=== PATIENT | female | born 2000 | race Caucasian/White ===

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

== ENCOUNTER 2020-04-02 08:22 | Emergency (ER) | payer BC, OTHER ==
[~2020-04-02] VITALS: Ht 177.8 cm; Wt 94.1 kg
[2020-04-02] MEDS ORDERED: KEFLEX500 MG PO (08:44)
== END 2020-04-02 09:01 | disposition home or self-care (01) ==
LOC: ED 08:22
DX: S61.032A Puncture wound without foreign body of left thumb without damage to nail, initial encounter (principal); W22.8XXA Striking against or struck by other objects, initial encounter; Y99.0 Civilian activity done for income or pay
CPT/HCPCS: 73140; 99283-25

== ENCOUNTER 2020-05-16 08:56 | Emergency (ER) | payer BC, OTHER ==
[~2020-05-16 08:56] MED LIST changes: +KEFLEX500 MG PO
== END 2020-05-16 12:00 | disposition home or self-care (01) ==
LOC: ED 08:56
DX: R10.11 Right upper quadrant pain (principal); J45.909 Unspecified asthma, uncomplicated
CPT/HCPCS: 76705; 80053; 83690; 84703; 85025; 99284-25

== ENCOUNTER 2020-06-06 11:31 | Emergency (ER) | payer BC, OTHER ==
[~2020-06-06] VITALS: Ht 177.8 cm; Wt 93.9 kg
--- OUTSIDE RECORDS SUMMARY | 2020-06-06 11:34 | XMS ---
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 - 2 Visits in 30 Days CARE PROVIDERS PAVILION, Durable Medical Equipment \T\ Medical Supplies [facility] PHONE: [phone] Choco has no Care Guidelines for this patient. [place] VISIT COUNT (12 MO.) 3 [facility] TOTAL 3 NOTE: Visits indicate total known visits. ED/UCC VISIT TRACKING (12 MO.) 06/06/2020 11:32 [facility] [place] TYPE: Emergency COMPLAINT: - LOWER ABDOMINAL PAIN 05/16/2020 08:56 [facility] [place] TYPE: Emergency COMPLAINT: - ABD PAIN DIAGNOSES: - Right upper quadrant pain - Unspecified asthma, uncomplicated 04/02/2020 08:23 [facility] [place] TYPE: Emergency COMPLAINT: - LEFT THUMB INJURY DIAGNOSES: - Striking against or struck by other objects, initial encounter - Puncture wound without foreign body of left thumb without damage to nail, initial encounter - Civilian activity done for income or pay INPATIENT VISIT TRACKING (12 MO.) No inpatient visits to display in this time frame [email or web address]
[2020-06-06] MEDS ORDERED: HYDROCODON-ACE1 EA10 PO (14:11)
== END 2020-06-06 14:27 | disposition home or self-care (01) ==
LOC: ED 11:31
DX: N83.201 Unspecified ovarian cyst, right side (principal)
CPT/HCPCS: 36415; 76830; 76856; 81001; 84703; 85025; 96374; 99284-25; J1885

== ENCOUNTER 2020-09-03 12:40 | Emergency (ER) | payer OTHER ==
[~2020-09-03] VITALS: Ht 177.8 cm; Wt 79.4 kg
[~2020-09-03 12:40] MED LIST changes: +HYDROCODON-ACE1 EA10 PO
--- OUTSIDE RECORDS SUMMARY | 2020-09-03 12:46 | XMS ---
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 Care History Medical/Surgical 06/07/2020 [facility] - Patient is currently established with [facility]. If patient is seen in the ED during business hours. Please contact CHWs at [facility]. Care Recommendation: If this patient has had 5 or more Emergency Department visits in the last 12 months.\T\nbsp; Patient will require education on the scope and purpose of the ED as an acute care provider not a Primary Care Provider and should not be utilized for chronic conditions.\T\nbsp; These are guidelines and the provider should exercise clinical judgment when providing care. E.D. VISIT COUNT (12 MO.) [address] [facility] TOTAL 4 NOTE: Visits indicate total known visits. ED/UCC VISIT TRACKING (12 MO.) 09/03/2020 12:41 [facility] [place] TYPE: Emergency COMPLAINT: - N/V, DIZZINESS 06/06/2020 11:32 [facility] [place] TYPE: Emergency COMPLAINT: - LOWER ABDOMINAL PAIN DIAGNOSES: - Unspecified ovarian cyst, right side - Pelvic and perineal pain 05/16/2020 08:56 [facility] [place] TYPE: Emergency [...] visits to display in this time frame [email or web address]
[2020-09-03] MEDS ORDERED: ONDANSETRON ODT4 MG PO (14:16)
== END 2020-09-03 14:26 | disposition home or self-care (01) ==
LOC: ED 12:40
DX: R11.2 Nausea with vomiting, unspecified (principal); J45.909 Unspecified asthma, uncomplicated
CPT/HCPCS: 81001; 84703; 99284

== ENCOUNTER 2020-09-10 07:27 | Emergency (ER) | payer OTHER ==
[~2020-09-10] VITALS: Ht 177.8 cm; Wt 72.6 kg
[~2020-09-10 07:27] MED LIST changes: +ONDANSETRON ODT4 MG PO
--- OUTSIDE RECORDS SUMMARY | 2020-09-10 07:30 | XMS ---
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 Care History Medical/Surgical 06/07/2020 [facility] - Patient is currently established with [facility]. If patient is seen in the ED during business hours. Please contact CHWs at [facility]. Care Recommendation: If this patient has had [...] providing care. E.D. VISIT COUNT (12 MO.) 5 [facility] TOTAL 5 NOTE: Visits indicate total known visits. ED/UCC VISIT TRACKING (12 MO.) 09/10/2020 07:28 [facility] [place] TYPE: Emergency COMPLAINT: - NAUSEA, VOMITING (CT SCHEDULED 0830) 09/03/2020 12:41 [facility] [place] [facility] [place] TYPE: Emergency COMPLAINT: - N/V, DIZZINESS DIAGNOSES: - Unspecified asthma, uncomplicated - Nausea with vomiting, unspecified 06/06/2020 11:32 [facility] [place] [facility] [place] TYPE: Emergency COMPLAINT: - LOWER ABDOMINAL PAIN DIAGNOSES: - Unspecified ovarian cyst, right side - Pelvic and perineal pain 05/16/2020 08:56 [facility] [place] [facility] [place] TYPE: Emergency COMPLAINT: - ABD PAIN DIAGNOSES: - Right upper quadrant pain - Unspecified asthma, uncomplicated 04/02/2020 08:23 [facility] [place] [facility] [place] TYPE: Emergency COMPLAINT: - LEFT THUMB INJURY DIAGNOSES: - Striking against or struck by other objects, initial encounter - Puncture wound without foreign body of left thumb without damage to nail, initial encounter - Civilian activity done for income or pay INPATIENT VISIT TRACKING (12 MO.) No inpatient visits to display in this time frame [email or web address]
== END 2020-09-10 12:00 | disposition home or self-care (01) ==
LOC: ED 07:27
DX: R10.9 Unspecified abdominal pain (principal); R11.2 Nausea with vomiting, unspecified; K76.89 Other specified diseases of liver; R63.4 Abnormal weight loss; J45.909 Unspecified asthma, uncomplicated
CPT/HCPCS: 74177; 80053; 81001; 82784; 83516; 83690; 84443; 84703; 85025; 96375; 99284-25; J1885; J2405; J7030; Q9967